=== PATIENT | male | born 1945 | race Caucasian/White ===

== ENCOUNTER → 2016-05-04 | Outpatient (CLI) | payer MEDICARE, BC | LOC: MRI 13:00 → KOH-I 14:22 → MRI 14:45 | DX: M51.27 Other intervertebral disc displacement, lumbosacral region (principal); M51.26 Other intervertebral disc displacement, lumbar region; M48.07 Spinal stenosis, lumbosacral region; M54.6 Pain in thoracic spine; M48.06 Spinal stenosis, lumbar region; G89.4 Chronic pain syndrome | CPT/HCPCS: 72146; 72148 ==